=== PATIENT | male | born 1980 | race Two or more races ===

== ENCOUNTER 2016-05-13 12:06 | Emergency (ER) | payer SELFPAY ==
[2016-05-13 12:22] VITALS: TEMP 98
[2016-05-13] MEDS ORDERED: Sodium Chloride 0.9% 1,000 ML IV STA (12:40)
--- NOTE | 2016-05-13 12:44 | ED PDOC ---
HPI: Headache <Yves Nieves M - Last Filed: 05/13/16 15:52> Chief Complaint (Provider): headache History Per: Patient (36 y/o male here with headache associated with room spinning. STates he has noted symptoms gradual onset 4 days ago but worsening today. Denies any fevers/chills. Notes worsening symptoms posterior aspect of head. Has h/o headaches in past coming and going as per patient. Has symptoms of nausea as well. Denies any chest pain/abdominal pain.) <Charly Nolan - Last Filed: 05/13/16 16:37> Time Seen by Provider: 05/13/16 12:30 Chief Complaint (Nursing): Headache Past Medical History Vital Signs: Last Vital Signs Temp 98 F 05/13/16 12:19 Pulse 88 05/13/16 12:19 Resp 14 05/13/16 12:19 BP 134/88 05/13/16 12:19 Pulse Ox 99 05/13/16 14:50 <Yves Nieves - Last Filed: 05/13/16 15:52> Reviewed: Historical Data, Nursing Documentation, Vital Signs Vital Signs: Last Vital Signs Temp 98 F 05/13/16 12:19 Pulse 88 05/13/16 12:19 Resp 14 05/13/16 12:19 BP 134/88 05/13/16 12:19 Pulse Ox 99 05/13/16 12:19 - Family History Family History: States: No Known Family Hx <Charly Nolan - Last Filed: 05/13/16 16:37> - Allergies Allergies/Adverse Reactions: Allergies Allergy/AdvReac Type Severity Reaction Status Date / Time No Known Allergies Allergy Verified 05/13/16 12:19 Review of Systems ROS Statement: Except As Marked, All Systems Reviewed And Found Negative Neurological: Positive for: Dizziness <Charly Nolan - Last Filed: 05/13/16 16:37> Physical Exam - Reviewed Nursing Documentation Reviewed: Yes Vital Signs Reviewed: Yes - Physical Exam Appears: Positive for: Well, Non-toxic, No Acute Distress Head Exam: Positive for: ATRAUMATIC, NORMAL INSPECTION, NORMOCEPHALIC Skin: Positive for: Normal Color, Warm, DRY Eye Exam: Positive for: Normal appearance, EOMI, PERRL, Nystagmus (horizontal) ENT: Positive for: Normal ENT Inspection Neck: Positive for: Normal, Painless ROM Cardiovascular/Chest: Positive for: Regular Rate, Rhythm Respiratory: Positive for: CNT, Normal Breath Sounds Gastrointestinal/Abdominal: Positive for: Normal Exam, Bowel Sounds, Soft Back: Positive for: Normal Inspection Extremity: Positive for: Normal ROM Neurologic/Psych: Positive for: Alert, Oriented <Charly Nolan - Last Filed: 05/13/16 16:37> - Laboratory Results Result Diagrams: 05/13/16 12:52 05/13/16 12:52 <Yves Nieves - Last Filed: 05/13/16 15:52> - Laboratory Results Result Diagrams: 05/13/16 12:52 05/13/16 12:52 - ECG O2 Sat by Pulse Oximetry: 99 - Progress ED Course And Treament: reglan 10 mg iv x 1 dose Antivert 25 mg x 1 dose NS 1 liter wide open Called to bedside at 13:27 as patient refused Antivert. Patient appears altered/nonresponsive to verbal/physical stimuli. Dr. Nieves called to bedside at this time. No gag reflex noted. Accucheck wnl. EKG: Sinus bradycardia; Junctional ST depression done at 12:58 Patient prepped for intubation and evaluation of possible cva/ich. CT head reviewed by Dr. Nieves with radiology 14:05 Subarachnoid hemorrhage noted. Call placed to Neurosurgery. Repeat BP 174/88 d/w Dr. Garrido. REcommends transfer to facility with neurosurgery. Call placed to [facility] to arrange for transfer. Keppra 1000mg iv load; Decadron 10 mg iv x 1 dose Case d/w Dr. Araiza, Neurosurgery. Patient to be transferred to [facility] for neurosurgery evaluation/management. <Charly Nolan - Last Filed: 05/13/16 16:37> Procedures - Time-Out Type of Procedure: Intubation Site of Procedure: Airway Correct Patient: Yes Correct Procedure: Yes Correct Site Marked: Yes Physician Name: Yves Nieves MD - Intubation Time of Intubation: 13:50 Intubation Method: orotracheal Tube Size (cm): 7.0 (Etomidate given prior to procedure) Breath Sounds after Intubation: equal Intubation Complications: no complications Post Intubation Xray: Yes (good placement) Progress/Xray Impression: patient tolerated procedure well <Yves Nieves - Last Filed: 05/13/16 15:52> Disposition <Yves Nieves - Last Filed: 05/13/16 15:52> - Patient ED Disposition Is Patient to be Admitted: No - Disposition Disposition: Other Institution Disposition Time: 15:30 <Charly Nolan - Last Filed: 05/13/16 16:37> - Clinical Impression Clinical Impression: Subarachnoid hemorrhage - Disposition Condition: FAIR
[2016-05-13 13:16] LABS: BASO % 0.3 % (0.0-2.0); EOS # 0.2 K/uL (0.0-0.7); EOS % 1.2 % (0.0-4.0); HEMATOCRIT 42.9 % (35.0-51.0); LYMPH # 3.1 K/uL (1.0-4.3); LYMPH % 22.9 % (20.0-40.0); MEAN CELL VOLUME 88.8 fl (80.0-94.0); MEAN CORPUSCULAR HEMOGLOBIN 29.9 pg (27.0-31.0); MEAN CORPUSCULAR HGB CONC 33.6 g/dL (33.0-37.0); MEAN PLATELET VOLUME 10.1 fl (7.2-11.7); MONO # 0.8 K/uL (0.0-0.8); MONO % 5.8 % (0.0-10.0); NEUT # 9.4 K/uL (1.8-7.0); NEUT % 69.8 % (50.0-75.0); NRBC % 0.1 % (0.0-0.0); RED CELL DISTRIBUTION WIDTH 13.2 % (11.5-14.5); WHITE BLOOD COUNT 13.5 K/uL (4.8-10.8)
[2016-05-13] MEDS ORDERED: Etomidate 20 mg/10ml Inj IV ONE ×3 (13:25→13:49)
[2016-05-13] MEDS ORDERED: Succinylcholine 200 mg/10 ml Inj IV ONE ×2 (13:25→13:50)
[2016-05-13 13:27] LABS: ALB/GLOB RATIO 1.3 (1.0-2.1); ALKALINE PHOSPHATASE 84 U/L (38-126); ALT/SGPT 48 U/L (21-72); AST/SGOT 39 U/L (17-59); BILIRUBIN,TOTAL 1.6 mg/dl (0.2-1.3); BLOOD UREA NITROGEN 12 mg/dl (9-20); CARBON DIOXIDE 19 mmol/L (22-30); CHLORIDE 104 mmol/L (98-107); GFR AFRICAN-AMERICAN > 60; GLUCOSE,RANDOM 155 mg/dL (75-110); POTASSIUM 3.1 MMOL/L (3.6-5.0); SODIUM 140 mmol/l (132-148); TOTAL PROTEIN 7.8 G/DL (6.3-8.2)
[2016-05-13] MEDS ORDERED: Propofol 10 mg/ml Inj (20 ML) IV ONE (13:51)
--- NOTE | 2016-05-13 14:16 | CT ---
PROCEDURE: CT HEAD WITHOUT CONTRAST. HISTORY: code stroke COMPARISON: None available. TECHNIQUE: Axial computed tomography images were obtained through the head/brain without intravenous contrast. Radiation dose: Total exam DLP = 02601 mGy-cm. FINDINGS: HEMORRHAGE: There is moderate to large intraventricular hemorrhage. There are scattered foci of subarachnoid hemorrhage seen in both cerebral hemisphere. BRAIN: There is diffuse effacement of the brain sulci suggestive a of increased intracranial pressure and possible brain edema. No atrophy or chronic microvascular ischemic changes. VENTRICLES: The ventricles are mildly enlarged. . CALVARIUM: Unremarkable. PARANASAL SINUSES: Unremarkable as visualized. No significant inflammatory changes. MASTOID AIR CELLS: Unremarkable as visualized. No inflammatory changes. OTHER FINDINGS: None. IMPRESSION: Moderate to large intraventricular acute hemorrhage. Scattered foci of subarachnoid hemorrhage seen at both side of the brain. Mildly enlarged ventricles. Diffuse effacement of sulci and extra-axial space including the basilar cistern suggestive of increased intracranial pressure and or brain edema. These findings were reported to the emergency room physician at 2:10 p.m. on 05/13/2016 .
[2016-05-13 14:31] LABS: PARTIAL THROMBOPLASTIN TIME 21.9 SECONDS (23.3-32.5)
[2016-05-13 14:39] LABS: CHOLESTEROL 205 mg/dL (0-199)
[2016-05-13] MEDS ORDERED: levETIRAcetam 500 MG in Sodium Chloride 0.9% 100 ML IVPB STA (14:45)
[2016-05-13] MEDS ORDERED: Dexamethasone 10 MG in Sodium Chloride 0.9% 50 ML IV ONE (14:50)
[2016-05-13 14:51] LABS: ABG ALLEN TEST YES; ARTERIAL BLOOD GAS HCO3 22.8 mmol/L (21-28); ARTERIAL BLOOD GAS PH 7.38 (7.35-7.45); ARTERIAL BLOOD GAS PO2 320 mm/Hg (80-100)
--- NOTE | 2016-05-13 15:21 | RAD ---
HISTORY: Dizziness. Technique: Single view portable semi erect @ 13:10. COMPARISON: No prior. FINDINGS: LUNGS: No active pulmonary disease. PLEURA: No significant pleural effusion identified, no pneumothorax apparent. CARDIOVASCULAR: Normal. OSSEOUS STRUCTURES: No significant abnormalities. VISUALIZED UPPER ABDOMEN: Normal. OTHER FINDINGS: None. IMPRESSION: No active disease.
[2016-05-13 16:46] LABS: RBC URINE 4 /hpf (0-3); URINE BACTERIA OCC (<OCC); URINE BILIRUBIN NEGATIVE (NEGATIVE); URINE BLOOD SMALL (NEGATIVE); URINE COLOR STRAW (YELLOW); URINE GLUCOSE (UA) >=500 mg/dL (Normal); URINE KETONE 20 mg/dL (NEGATIVE); URINE LEUKOCYTE ESTERASE NEG Leu/uL (Negative); URINE PROTEIN NEGATIVE (NEGATIVE); URINE UROBILINOGEN 0.2-1.0 mg/dL (0.2-1.0); WBC URINE 7 /hpf (0-5)
[2016-05-13 17:13] VITALS: BP 146/76; PULSE 74; RESP 14
[2016-05-13 17:15] VITALS: O2SAT 100
--- NOTE | 2016-05-13 17:15 | RAD ---
HISTORY: CVA. Technique: Supine view performed @ 14:10. COMPARISON: May 13, 2016. 13:10. FINDINGS: LUNGS: No active pulmonary disease. PLEURA: No significant pleural effusion identified, no pneumothorax apparent. CARDIOVASCULAR: Normal. OSSEOUS STRUCTURES: No significant abnormalities. VISUALIZED UPPER ABDOMEN: Normal. OTHER FINDINGS: Satisfactory position of recently placed endotracheal tube. IMPRESSION: No significant interval change compared to the prior examination(s). Recently placed endotracheal tube in satisfactory position. The tip is 3 cm above the nikita.
--- NOTE | 2016-05-14 11:46 | CARD ---
APPROVED REPORT EKG Measurement Heart [id number] <Conclusion> Sinus bradycardia with sinus arrhythmia Junctional ST depression, probably normal Borderline ECG
== END 2016-05-13 16:13 | disposition short-term general hospital (02) ==
LOC: H.ER 12:06
DX: I60.9 Nontraumatic subarachnoid hemorrhage, unspecified (principal)
CPT/HCPCS: 31500; 70450; 71010; 80053; 80061; 81003; 82140; 82803; 82948; 83036; 84484; 85025; 85610; 85730; 86850; 86900; 93005; 94770; 96374; 99284; G0480; J0330; J1100; J1953; J2704; J2765; J7040